=== PATIENT | male | born 1960 | race American Indian/Alaskan Native ===

== ENCOUNTER 2018-05-13 14:20 | Emergency (ER) | payer OTHER ==
--- NOTE | 2018-05-13 14:26 | Emergency Department Report ---
Blank Doc - Documentation Documentation: This is a 57-year-old male that presents with right arm pain tingling sensation intermittnet. Stated 4 days ago and resolved and now back today. Patient stated he got scared and started to have chest pain and upper abdominal pain. Also c/o of hematuria. Denies any other symptoms. Denies any SOB. This initial assessment diagnostic orders/clinical plan/treatment(s) is/are subject to change based on patient's health status, clinical progression and re- assessment by fellow clinical providers in the ED. Further treatment and workup at subsequent clinical providers discretion. Patient/guardians urged not to elope from ED s their condition may be serious if not clinically assessed and managed. Initial orders include: 1-Patient sent to [facility] for further evaluation and treatment 2- Labs 3- EKG
[2018-05-13 14:59] LABS: Eosinophils # (Auto) 0.2 K/mm3 (0.0-0.4); Eosinophils % (Auto) 3.5 % (0.0-4.3); Hematocrit 45.3 % (35.5-45.6); Hemoglobin 14.8 gm/dl (11.8-15.2); Lymphocytes # (Auto) 2.3 K/mm3 (1.2-5.4); Lymphocytes % (Auto) 45.4 % (13.4-35.0); Mean Corpuscular HGB Conc 33 % (32-34); Mean Corpuscular Volume 85 fl (84-94); Monocytes # (Auto) 0.6 K/mm3 (0.0-0.8); Monocytes % (Auto) 12.1 % (0.0-7.3); Platelet Count 205 K/mm3 (140-440); Red Blood Count 5.31 M/mm3 (3.65-5.03); Red Cell Distribution Width 14.8 % (13.2-15.2)
[2018-05-13 15:18] LABS: Alanine Aminotransferase 35 units/L (7-56); Albumin 4.3 g/dL (3.9-5); BUN/Creatinine Ratio 15; Blood Urea Nitrogen 20 mg/dL (9-20); Calcium 9.3 mg/dL (8.4-10.2); Hemolysis Index 14
--- NOTE | 2018-05-13 20:35 | XRay Report ---
FINAL REPORT PROCEDURE: XR CHEST ROUTINE 2V TECHNIQUE: PA and lateral chest radiographs were obtained. CPT 30746 HISTORY: CHEST PAIN COMPARISON: No prior studies are available for comparison. FINDINGS: Heart: Normal. Mediastinum/Vessels: Normal. Lungs/Pleural space: Normal. Bony thorax: No acute osseous abnormality. Other: IMPRESSION: No acute cardiopulmonary disease.
--- NOTE | 2018-05-13 22:51 | Emergency Department Report ---
ED Chest Pain HPI - General Chief Complaint: Abdominal Pain Stated Complaint: CHEST/ABD PAIN Time Seen by Provider: 05/13/18 14:41 Source: patient Mode of arrival: Ambulatory Limitations: No Limitations - History of Present Illness Initial Comments: 57-year-old -[place] male with a history of prediabetes, alcohol abuse, hypertension presents to the emergency department complaining of a 2 day history of right arm pain associated with chest discomfort which radiates to the abdominal region. Pain in umbilical an achy sensation with tingling to the right arm associated with a dull pain to the abdomen. No palliative or provocative factors noted. No fever, chills, sweats, chest pain, palpitations, hemoptysis, symptoms, hematochezia. No vomiting or diarrhea. No constipation. Reports no known trauma. MD Complaint: chest pain Pain Location: right chest Pain Radiation: none Severity: mild Severity scale (0 -10): 3 Quality: dull Consistency: constant Improves With: nothing Worsens With: nothing re: nausea Other Symptoms: denies: cough, fever, syncope, rash, acid taste in mouth, palpitations, burping Treatments Prior to Arrival: none - Related Data Previous Rx's Medication Instructions Recorded Last Taken Type Aspirin [Aspirin BABY CHEW TAB] 81 mg PO QDAY #30 tab.chew 09/15/16 Unknown Rx Atenolol [Tenormin] 50 mg PO DAILY #30 tablet 09/15/16 Unknown Rx Allergies Allergy/AdvReac Type Severity Reaction Status Date / Time No Known Allergies Allergy Unverified 05/13/18 14:24 Heart Score - HEART Score History: Slightly suspicious EKG: Normal Age: 45-65 Risk factors: 1-2 risk factors Troponin: < normal limit HEART Score: 2 ED Review of Systems ROS: Stated complaint: CHEST/ABD PAIN Other details as noted in HPI Constitutional: denies: chills, fever Eyes: denies: eye pain, eye discharge, vision change ENT: denies: ear pain, throat pain Respiratory: denies: cough, shortness of breath, wheezing Cardiovascular: denies: chest pain, palpitations Endocrine: no symptoms reported Gastrointestinal: denies: abdominal pain, nausea, diarrhea Genitourinary: denies: urgency, dysuria Musculoskeletal: denies: back pain, joint swelling, arthralgia Skin: denies: rash, lesions Neurological: denies: headache, weakness, paresthesias Psychiatric: denies: anxiety, depression Hematological/Lymphatic: denies: easy bleeding, easy bruising ED Past Medical Hx - Past Medical History Previous Medical History?: Yes Hx Hypertension: Yes Hx Congestive Heart Failure: No Hx Diabetes: Yes (BORDERLINE) Hx Asthma: No Hx COPD: No Additional medical history: GOUT. MVP, Abuse ETOH - Surgical History Past Surgical History?: Yes Additional Surgical History: Left thumb - Social History Smoking Status: Former Smoker Substance Use Type: Alcohol, Prescribed - Medications Home Medications: Home Medications Medication Instructions Recorded Confirmed Last Taken Type Aspirin [Aspirin BABY CHEW TAB] 81 mg PO QDAY #30 tab.chew 09/15/16 Unknown Rx Atenolol [Tenormin] 50 mg PO DAILY #30 tablet 09/15/16 Unknown Rx ED Physical Exam - General Limitations: No Limitations General appearance: alert, in no apparent distress - Head Head exam: Present: atraumatic, normocephalic - Eye Eye exam: Present: normal appearance, PERRL, EOMI Pupils: Present: normal accommodation - ENT ENT exam: Present: normal exam, mucous membranes moist - Neck Neck exam: Present: normal inspection, full ROM - Respiratory Respiratory exam: Present: normal lung sounds bilaterally. Absent: respiratory distress, wheezes, rales, rhonchi, chest wall tenderness, accessory muscle use - Cardiovascular Cardiovascular Exam: Present: regular rate, normal rhythm. Absent: systolic murmur, diastolic murmur, rubs, gallop - GI/Abdominal GI/Abdominal exam: Present: soft, normal bowel sounds - Rectal Rectal exam: Present: deferred - Extremities Exam Extremities exam: Present: normal inspection - Back Exam Back exam: Present: normal inspection - Neurological Exam Neurological exam: Present: alert, oriented X3 - Psychiatric Psychiatric exam: Present: normal affect, normal mood - Skin Skin exam: Present: warm, dry, intact, normal color. Absent: rash ED Course Vital Signs 05/13/18 05/13/18 05/13/18 14:26 23:03 23:10 Temperature 98.4 F 98.4 F Pulse Rate 94 H 77 77 Respiratory 18 Rate Blood Pressure 145/99 148/98 O2 Sat by Pulse 98 97 97 Oximetry ROSSY score - Rossy Score Age > 65: (0) No Aspirin use within the Past 7 Days: (0) No 3 or more CAD Risk Factors: (0) No 2 or more Angina events in past 24 hrs: (0) No Known CAD with more than 50% Stenosis: (0) No Elevated Cardiac Markers: (0) No ST Deviation Greater than 0.5mm: (0) No ROSSY Score: 0 ED Medical Decision Making - Lab Data Result diagrams: 05/13/18 14:46 05/13/18 14:46 Critical care attestation.: If time is entered above; I have spent that time in minutes in the direct care of this critically ill patient, excluding procedure time. ED Disposition Clinical Impression: Normal troponin, Chest pain Disposition: DC-01 TO HOME OR SELFCARE Is pt being admited?: No Does the pt Need Aspirin: No Condition: Stable Instructions: Chest Pain (ED) Referrals: [facility] [Provider Group] - 3-5 Days [facility] M[facility]HE STRAUSS MD [Primary Care Provider] - 3-5 Days Forms: Work/School Release Form(ED)
[2018-05-13 23:05] VITALS: BP 148/98
== END 2018-05-13 23:10 | disposition home or self-care (01) ==
LOC: ED 14:20
DX: R07.89 Other chest pain (principal); M79.601 Pain in right arm; R79.89 Other specified abnormal findings of blood chemistry; I10 Essential (primary) hypertension; E11.9 Type 2 diabetes mellitus without complications; Z87.891 Personal history of nicotine dependence
CPT/HCPCS: 36415; 71046; 80053; 84484; 85025

== ENCOUNTER 2020-06-18 01:30 | Emergency (ER) | payer OTHER ==
[2020-06-18 01:36] VITALS: BP 178/114
--- NOTE | 2020-06-18 02:10 | XRay Report ---
LEFT WRIST 3 VIEW(S) INDICATION / CLINICAL INFORMATION: wrist pain COMPARISON: None available. FINDINGS: BONES / JOINT(S): No acute fracture or subluxation. No significant arthritis. SOFT TISSUES: No significant abnormality. ADDITIONAL FINDINGS: None. Signer Name: Gianni Villeda MD Signed: 06/18/2020 2:05 AM Workstation Name: [id number]
[2020-06-18] MEDS ORDERED: IBUPROFEN 800 MG TAB PO ONE (03:47)
[2020-06-18] MEDS ORDERED: predniSONE 20 MG TAB PO ONE (03:47)
--- NOTE | 2020-06-18 03:53 | Emergency Department Report ---
ED Extremity Problem HPI - General Chief complaint: Extremity Injury, Upper Stated complaint: LEFT WRIST SWOLLEN/SEVERE PAIN Source: patient Mode of arrival: Ambulatory Limitations: No Limitations - History of Present Illness Initial comments: Patient is a 59-year-old -[place] male with a history of hypertension, jko-zugtqky-[id number] diabetes and chronic gouty arthropathy and osteoarthritis who presents to the ED with acute onset persistent severe nontraumatic left wrist joint pain with swelling for the last 3 days. Patient states that the pain has been persistent and constant and especially worse in the last 24 hours. Patient states that it any active range of motion of the right wrist makes the pain even worse. Patient states that the pain is typical of his chronic gouty arthropathy with exacerbations. Patient denies fall, traumatic injury, numbness and tingling or weakness of left wrist, heavy lifting, nausea and vomiting, fever, chills, neck pain, chest pain, shortness of breath, dizziness or change in vision. MD Complaint: extremity pain (left wrist pain), extremity swelling (left wrist pain), joint swelling (left wrist), joint paint (left wrist) -: Sudden, days(s) (3) Location: left (wrist), upper extremity (left wrist) History of Same: Yes (History of chronic gouty arthropathy) -: Yes arthralgia (And swelling) Radiation: proximal Severity scale (0 -10): 8 Quality: aching, sharp Consistency: constant Improves with: nothing Worsens with: weight bearing, exertion, palpation Associated Symptoms: denies other symptoms, arthralgias (Left wrist pain). denies: chest pain, shortness of breath, fever, myalgias, rash, other - Related Data Previous Rx's Medication Instructions Recorded Last Taken Type Aspirin [Aspirin BABY CHEW TAB] 81 mg PO QDAY #30 tab.chew 09/15/16 Unknown Rx atenoloL [Tenormin] 50 mg PO DAILY #30 tablet 09/15/16 Unknown Rx Meclizine [Antivert] 12.5 mg PO BID PRN #12 tablet 10/24/18 Unknown Rx Colchicine 0.6 mg PO Q8H PRN #15 tablet 06/18/20 Unknown Rx Indomethacin [Indocin] 50 mg PO Q8H #60 capsule 06/18/20 Unknown Rx predniSONE [Deltasone] 40 mg PO QDAY #12 tab 06/18/20 Unknown Rx traMADoL [Ultram] 50 mg PO Q6HR PRN #12 tablet 06/18/20 Unknown Rx Allergies Allergy/AdvReac Type Severity Reaction Status Date / Time No Known Allergies Allergy Unverified 05/13/18 14:24 ED Review of Systems ROS: Stated complaint: LEFT WRIST SWOLLEN/SEVERE PAIN Other details as noted in HPI Constitutional: denies: chills, fever Eyes: denies: eye pain, eye discharge, vision change ENT: denies: ear pain, throat pain Respiratory: denies: cough, shortness of breath, wheezing Cardiovascular: denies: chest pain, palpitations Endocrine: no symptoms reported Gastrointestinal: denies: abdominal pain, nausea, diarrhea Genitourinary: denies: urgency, dysuria Musculoskeletal: joint swelling (Left wrist swelling), arthralgia (Left wrist pain and swelling). denies: back pain Skin: denies: rash, lesions Neurological: denies: headache, weakness, paresthesias Psychiatric: denies: anxiety, depression Hematological/Lymphatic: denies: easy bleeding, easy bruising ED Past Medical Hx - Past Medical History Hx Hypertension: Yes Hx Congestive Heart Failure: No Hx Diabetes: Yes (BORDERLINE) Hx Asthma: No Hx COPD: No Additional medical history: GOUT. MVP, Abuse ETOH - Surgical History Additional Surgical History: Left thumb - Social History Smoking Status: Never Smoker - Medications Home Medications: Home Medications Medication Instructions Recorded Confirmed Last Taken Type Aspirin [Aspirin BABY CHEW TAB] 81 mg PO QDAY #30 tab.chew 09/15/16 Unknown Rx atenoloL [Tenormin] 50 mg PO DAILY #30 tablet 09/15/16 Unknown Rx Meclizine [Antivert] 12.5 mg PO BID PRN #12 tablet 10/24/18 Unknown Rx Colchicine 0.6 mg PO Q8H PRN #15 tablet 06/18/20 Unknown Rx Indomethacin [Indocin] 50 mg PO Q8H #60 capsule 06/18/20 Unknown Rx predniSONE [Deltasone] 40 mg PO QDAY #12 tab 06/18/20 Unknown Rx traMADoL [Ultram] 50 mg PO Q6HR PRN #12 tablet 06/18/20 Unknown Rx ED Physical Exam - General Limitations: No Limitations General appearance: alert, in no apparent distress - Head Head exam: Present: atraumatic, normocephalic, normal inspection - Eye Eye exam: Present: normal appearance, PERRL, EOMI Pupils: Present: normal accommodation - ENT ENT exam: Present: normal exam, normal orophraynx, mucous membranes moist, TM's normal bilaterally, normal external ear exam - Neck Neck exam: Present: normal inspection, full ROM - Respiratory Respiratory exam: Present: normal lung sounds bilaterally. Absent: respiratory distress, wheezes, rales, rhonchi, stridor, chest wall tenderness, accessory muscle use, decreased breath sounds, prolonged expiratory - Cardiovascular Cardiovascular Exam: Present: normal rhythm, tachycardia, normal heart sounds. Absent: systolic murmur, diastolic murmur, rubs, gallop - GI/Abdominal GI/Abdominal exam: Present: soft, normal bowel sounds. Absent: tenderness, guarding, rebound, hyperactive bowel sounds, hypoactive bowel sounds, organomegaly - Extremities Exam Extremities exam: Present: normal inspection, full ROM, tenderness (Left wrist tenderness), normal capillary refill, joint swelling (Palpable left wrist tenderness and swelling). Absent: calf tenderness - Back Exam Back exam: Present: normal inspection, full ROM. Absent: tenderness, CVA tenderness (L), muscle spasm, paraspinal tenderness, vertebral tenderness - Neurological Exam Neurological exam: Present: alert, oriented X3, CN II-XII intact, normal gait, reflexes normal - Psychiatric Psychiatric exam: Present: normal affect, normal mood, anxious - Skin Skin exam: Present: warm, dry, intact, normal color. Absent: rash ED Course Vital Signs 06/18/20 01:34 Temperature 98.6 F Pulse Rate 106 H Respiratory 18 Rate Blood Pressure 178/114 O2 Sat by Pulse 98 Oximetry ED Medical Decision Making - Radiology Data Radiology results: report reviewed, image reviewed [facility] [address] [place] [address] XRay Report Signed Patient: BRYAN ALVAREZ MR#: [id number] 4 : 1960 Acct:[id number] Age/Sex: 59 / M ADM Date: 06/18/20 Loc: ED Attending Dr: Ordering Physician: DAO SALAZAR MD Date of Service: 06/18/20 Procedure(s): XR wrist 3+V LT Accession Number(s): [id number] cc: DAO SALAZAR MD Fluoro Time In Minutes: LEFT WRIST 3 VIEW(S) INDICATION / CLINICAL INFORMATION: wrist pain COMPARISON: None available. FINDINGS: BONES / JOINT(S): No acute fracture or subluxation. No significant arthritis. SOFT TISSUES: No significant abnormality. ADDITIONAL FINDINGS: None. Signer Name: Gianni Villeda MD Signed: 06/18/2020 2:05 AM Workstation Name: [id number] Transcribed By: TL Dictated By: Gianni Villeda MD Electronically Authenticated By: Gianni Villeda MD Signed Date/Time: 06/18/20204 DD/ 4 TD/TT: - Medical Decision Making This is a 59-year-old -[place] male with a history of hypertension, [id number] diabetes and chronic gouty arthropathy and osteoarthritis who presents to the ED with acute onset persistent severe nontraumatic left wrist joint pain with swelling for the last 3 days. Patient states that the pain has been persistent and constant and especially worse in the last 24 hours. Patient states that it any active range of motion of the right wrist makes the pain even worse. Patient states that the pain is typical of his chronic gouty arthropathy with exacerbations. In the ED, patient is alert and oriented x3 and is not in distress. Patient is however tachycardic in triage. Left wrist x- ray shows no acute fractures or subluxations. Patient was treated for pain in the ED and on reevaluation, patient's pain is well controlled with medication and tachycardia also resolved with treatment. Patient was therefore discharged home on medications and advised to follow-up with his primary care physician in 7 to 10 days for reevaluation or return to the ED immediately if symptoms get worse. - Differential Diagnosis Muscle strain agouty arthropathy; tendinitis; osteoarthritis; Critical care attestation.: If time is entered above; I have spent that time in minutes in the direct care of this critically ill patient, excluding procedure time. ED Disposition Clinical Impression: Acute gouty arthropathy, Tendinitis of left wrist Disposition: TO HOME OR SELFCARE Is pt being admited?: No Does the pt Need Aspirin: No Condition: Stable Instructions: Osteoarthritis, Tendinitis, Xelp-ft-[id number] Additional Instructions: Left wrist x-ray shows no acute fractures or subluxations. Therefore take medication with food, drink plenty of fluids and follow-up with your primary care physician in 7 to 10 days for reevaluation. Return to the ED immediately if symptoms get worse. Prescriptions: Colchicine 0.6 mg PO Q8H PRN #15 tablet PRN Reason: Pain , Severe (7-10) predniSONE [Deltasone] 40 mg PO QDAY #12 tab Indomethacin [Indocin] 50 mg PO Q8H #60 capsule traMADoL [Ultram] 50 mg PO Q6HR PRN #12 tablet PRN Reason: Pain Referrals: PRIMARY CARE, [Primary Care Provider] - 3-5 Days Time of Disposition: 03:57 Print Language: AUSTRIAN
[2020-06-18] MEDS ORDERED: COLCHICINE 0.6 MG TAB PO ONE (04:47)
== END 2020-06-18 07:00 | disposition home or self-care (01) ==
LOC: ED 01:30
DX: M10.9 Gout, unspecified (principal); M77.8 Other enthesopathies, not elsewhere classified; I10 Essential (primary) hypertension; E11.9 Type 2 diabetes mellitus without complications; Z79.82 Long term (current) use of aspirin; Z79.899 Other long term (current) drug therapy
CPT/HCPCS: 73110; 99283; J7512